=== PATIENT | male | born 1955 | race Caucasian/White ===

== ENCOUNTER → 2018-08-15 | Outpatient (CLI) | payer BC | LOC: RAD 14:44 | DX: M79.89 Other specified soft tissue disorders (principal); M13.842 Other specified arthritis, left hand ==

== ENCOUNTER → 2021-07-25 | Outpatient (CLI) | payer MEDICARE, BC | LOC: VAS 08:51 → RAD 09:00 → VAS 09:00 | DX: I10 Essential (primary) hypertension (principal) ==